=== PATIENT | male | born 1955 | race Caucasian/White ===

== ENCOUNTER → 2023-04-14 | Outpatient (CLI) | payer BC ==
--- NOTE | 2023-04-15 09:08 | CT ---
EXAMINATION TYPE: CT chest w con DATE OF EXAM: 04/14/2023 COMPARISON: None HISTORY: is looking for possible abnormality of left lower lung CT DLP: 189.9 mGycm Automated exposure control for dose reduction was used. TECHNIQUE: CT scan of the chest is performed with IV Contrast, patient injected with 100cc mL of Isovue 300. [place] P Images are created on CT scanner and reviewed. 3D reconstructed images are created on an [employer] workstation and reviewed. FINDINGS: LUNGS: The lungs are grossly clear, there is no concerning consolidative pneumonia identified. Ther e is no pleural effusion or pneumothorax seen. The tracheobronchial tree is patent. Diffuse emphysem atous changes are seen. 4 mm right lower lobe pulmonary nodule image 56 to small to characterize. 2 m m calcified granuloma left lower lobe image 55. Subpleural linear based density anterior segment left lower lobe most typical linear scarring or atelectasis MEDIASTINUM: There are no greater than 1 cm hilar or mediastinal lymph nodes. No pericardial effusi on is seen. Coronary artery calcifications are seen. There is mild atherosclerotic change of the aor ta. OTHER: Limited imaging in the upper abdomen demonstrates a 3 cm abdominal aortic aneurysm. Calcifica tion in the gallbladder fossa suggestive of gallstone. Hypertrophic and degenerative changes of the s pine. IMPRESSION: 1. There is sub-5 mm pulmonary nodules too small to characterize but have a benign appearance. Twelve -month follow-up recommended to confirm stability. 2. Linear band of density anterior segment left lower lobe is most typical of atelectasis or scar 3. Cholelithiasis. 4. Coronary artery calcification. 5. There is a 3 cm abdominal aortic aneurysm only partially included in the [id number].
== END | disposition home or self-care (01) ==
LOC: RADCTMAIN 17:29
PROVIDERS: ATTEND Family Medicine
DX: J98.4 Other disorders of lung (principal); I71.40 Abdominal aortic aneurysm, without rupture, unspecified; I25.10 Atherosclerotic heart disease of native coronary artery without angina pectoris; K80.20 Calculus of gallbladder without cholecystitis without obstruction; R93.89 Abnormal findings on diagnostic imaging of other specified body structures
CPT/HCPCS: 82565; 84520; 71260; 36415; Q9967